=== PATIENT | male | born 1970 | race Caucasian/White ===

== ENCOUNTER → 2023-07-25 | Outpatient (CLI) | payer OTHER | LOC: M SLEEP HO 11:14 | PROVIDERS: ATTEND Family Medicine | DX: G47.9 Sleep disorder, unspecified (principal) ==

== ENCOUNTER → 2023-11-27 | Outpatient (CLI) | payer OTHER | LOC: M SLEEP 20:00 | PROVIDERS: ATTEND Nurse Practitioner Family | DX: G47.33 Obstructive sleep apnea (adult) (pediatric) (principal) ==